=== PATIENT | female | born 1990 | race Two or more races ===

== ENCOUNTER 2024-06-17 01:25 | Inpatient (IN) | payer MEDICAID ==
[~2024-06-17] VITALS: Ht 165.1 cm; Wt 115.7 kg
[2024-06-17] VITALS (10 sets, daily range): BP systolic 98–127; BP diastolic 39–68; TEMP 98–101.5; O2SAT 96–98
[2024-06-17] MEDS ORDERED: NO REPORTED MEDS (02:21)
[2024-06-17] MEDS ORDERED: ONDANSETRON 4 MG/2 ML VIAL IV PRN (03:45)
[2024-06-17] MEDS ORDERED: MORPHINE SULFATE 2 MG/1 ML DISP.SYRIN IVP PRN (03:45)
[2024-06-17 04:04] LABS: LYMPHOCYTES # (AUTO) 0.9 K/uL (0.8-4.8); MONOCYTES # (AUTO) 0.8 K/uL (0.1-1.30); NEUTROPHILS # (AUTO) 3.8 K/uL (1.8-8.9); WHITE BLOOD COUNT (AUTO) 5.5 K/uL (3.8-11.8)
[2024-06-17 04:05] LABS: BASOPHILS % (AUTO) 0.4 % (0.0-2.0); EOSINOPHILS % (AUTO) 0.1 % (0.0-7.0); HEMATOCRIT 21.9 % (31.2-41.9); MEAN CORPUSCULAR HEMOGLOBIN 17.2 uug (24.7-32.8); MEAN CORPUSCULAR HGB CONC 30 g/dL (32.3-35.6); MEAN CORPUSCULAR VOLUME 56.6 fL (75.5-95.3); MONOCYTES % (AUTO) 14.6 % (0.0-11.0); NEUTROPHILS % (AUTO) 67.9 % (38.5-71.5); PLATELET COUNT (AUTO) 188 K/uL (179-408); RED BLOOD CELL COUNT(AUTO) 3.86 MIL/uL (3.63-4.92)
[2024-06-17 04:12] LABS: DIFFERENTIAL COMMENT 1
[2024-06-17 04:14] LABS: HEMOGLOBIN 6.6 g/dL (10.9-14.3)
[2024-06-17 04:24] LABS: ALBUMIN 2.9 g/dL (3.4-5.0); BILIRUBIN,TOTAL 0.4 mg/dL (0.2-1.0); CALCIUM 8.5 mg/dL (8.5-10.1); CREATININE 0.6 mg/dL (0.6-1.3); POTASSIUM 3.6 mmol/L (3.5-5.1); TOTAL PROTEIN, SERUM 6.7 g/dL (6.4-8.2)
[2024-06-17 04:28] LABS: BAND % (MANUAL) 3 % (0-10); BASOPHILS % (MANUAL) 0 % (0-2); EOSINOPHILS % (MANUAL) 0 % (0-8); LYMPHOCYTES % (MANUAL) 14 % (20-40); MONOCYTES % (MANUAL) 12 % (2-10); NEUTROPHILS % (MANUAL) 71 % (42-75)
[2024-06-17 04:29] LABS: ANISOCYTOSIS 1+; PLATELET ESTIMATE ADEQUATE
[2024-06-17] MEDS ORDERED: CEFEPIME HCL 1 G VIAL ONE (04:48)
[2024-06-17] MEDS: CEFEPIME HCL 1 G in IV DEXTROSE 5% 50 ML IV ONE (05:11)
[2024-06-17] MEDS: ACETAMINOPHEN 325 MG TABLET PO PRN (05:13)
[2024-06-17] MEDS ORDERED: HEPARIN SODIUM,PORCINE 5,000 UNITS/ML VIAL SQ SCH (09:00)
[2024-06-17] MEDS: ACETAMINOPHEN 500 MG TABLET PO PRN (11:18)
[2024-06-17] MEDS: CEFEPIME HCL 1 G in IV DEXTROSE 5% 50 ML IV SCH (14:34)
[2024-06-17 18:06] LABS: IRON, SERUM 7 ug/dL (50-175)
[2024-06-17 18:10] LABS: *BILIRUBIN,URIN NEGATIVE (NEGATIVE); *BLOOD, URINE 1+ (NEGATIVE); *CLARITY,URINE CLEAR (CLEAR); *COLOR,URINE DARK YELLOW (YELLOW); *KETONES,URINE 2+ (NEGATIVE); *PROTEIN,URINE 1+ (NEGATIVE); LEUKOCYTE ESTERASE ,URINE NEGATIVE (NEGATIVE); NITRITE, URINE NEGATIVE (NEGATIVE); UGLUCOSE NEGATIVE (NEGATIVE)
[2024-06-17 18:17] LABS: BACTERIA,URINE FEW /HPF (NONE SEEN); SQUAMOUS EPITHELIAL CELL,UR FEW /HPF (NONE SEEN)
[2024-06-17 18:35] LABS: HEMATOCRIT 25.1 % (31.2-41.9); HEMOGLOBIN 7.8 g/dL (10.9-14.3)
[2024-06-18 05:34] VITALS: BP 107/53; TEMP 98.5; O2SAT 97
[2024-06-18 06:48] LABS: BASOPHILS % (AUTO) 0.6 % (0.0-2.0); EOSINOPHILS # (AUTO) 0.1 K/uL (0.0-0.7); HEMATOCRIT 22.8 % (31.2-41.9); LYMPHOCYTES # (AUTO) 1.3 K/uL (0.8-4.8); LYMPHOCYTES % (AUTO) 24.4 % (20.5-51.5); MEAN CORPUSCULAR HEMOGLOBIN 18.5 uug (24.7-32.8); MEAN CORPUSCULAR HGB CONC 31 g/dL (32.3-35.6); MEAN CORPUSCULAR VOLUME 59.1 fL (75.5-95.3); MONOCYTES # (AUTO) 0.9 K/uL (0.1-1.30); MONOCYTES % (AUTO) 16.9 % (0.0-11.0); NEUTROPHILS % (AUTO) 57.1 % (38.5-71.5); PLATELET COUNT (AUTO) 183 K/uL (179-408); RED BLOOD CELL COUNT(AUTO) 3.87 MIL/uL (3.63-4.92); RED CELL DISTRIBUTION WIDTH 20.5 % (12.3-17.7); WHITE BLOOD COUNT (AUTO) 5.3 K/uL (3.8-11.8)
[2024-06-18 07:05] LABS: DIFFERENTIAL COMMENT 1; HEMOGLOBIN 7.2 g/dL (10.9-14.3)
[2024-06-18 07:11] LABS: ALBUMIN 2.8 g/dL (3.4-5.0); BILIRUBIN,TOTAL 0.4 mg/dL (0.2-1.0); CALCIUM 8.5 mg/dL (8.5-10.1); CREATININE 0.6 mg/dL (0.6-1.3); PHOSPHOROUS 3.1 mg/dL (2.5-4.9); POTASSIUM 3.9 mmol/L (3.5-5.1); TOTAL PROTEIN, SERUM 6.9 g/dL (6.4-8.2)
[2024-06-18 07:50] LABS: NEUTROPHILS % (MANUAL) 0 % (42-75)
[2024-06-18 07:51] LABS: LYMPHOCYTES % (MANUAL) 0 % (20-40)
[2024-06-18 07:52] VITALS: BP 104/46; TEMP 97.6; O2SAT 98
[2024-06-18] MEDS: HYDROCODONE/APAP 5-325MG TABLET PO PRN (08:25)
[2024-06-18] MEDS ORDERED: IOHEXOL 300MG/ML 100 ML INFUS..BTL ONE (09:38)
[2024-06-18] MEDS ORDERED: SWABABLE VALVE TRANSFER SET EA MC ONE (09:38)
[2024-06-18] MEDS ORDERED: IV NORMAL SALINE 250 ML IV ONE (09:38)
[2024-06-18 11:41] VITALS: BP 104/57; TEMP 97.9; O2SAT 98
[2024-06-18 16:08] VITALS: BP 101/53; TEMP 97.9; O2SAT 99
[2024-06-18 19:00] VITALS: BP 103/53; TEMP 97.7; O2SAT 96
[2024-06-19] VITALS: BP 98/47; TEMP 97.7; O2SAT 99
[2024-06-19 04:00] VITALS: BP 103/56; TEMP 98; O2SAT 95
[2024-06-19 07:31] VITALS: BP 87/46; TEMP 97.9; O2SAT 98
[2024-06-19 07:34] LABS: BASOPHILS % (AUTO) 0.9 % (0.0-2.0); DIFFERENTIAL COMMENT 0; EOSINOPHILS # (AUTO) 0.1 K/uL (0.0-0.7); EOSINOPHILS % (AUTO) 3.1 % (0.0-7.0); LYMPHOCYTES # (AUTO) 1.6 K/uL (0.8-4.8); LYMPHOCYTES % (AUTO) 37.3 % (20.5-51.5); MEAN CORPUSCULAR HEMOGLOBIN 18.4 uug (24.7-32.8); MEAN CORPUSCULAR HGB CONC 31 g/dL (32.3-35.6); MONOCYTES # (AUTO) 0.6 K/uL (0.1-1.30); MONOCYTES % (AUTO) 14.7 % (0.0-11.0); NEUTROPHILS # (AUTO) 1.9 K/uL (1.8-8.9); PLATELET COUNT (AUTO) 184 K/uL (179-408); RED BLOOD CELL COUNT(AUTO) 3.89 MIL/uL (3.63-4.92); RED CELL DISTRIBUTION WIDTH 20.3 % (12.3-17.7); WHITE BLOOD COUNT (AUTO) 4.2 K/uL (3.8-11.8)
[2024-06-19 07:37] LABS: CALCIUM 8.5 mg/dL (8.5-10.1); CARBON DIOXIDE 28 mmol/L (21-32); CHLORIDE 103 mmol/L (98-107); CREATININE 0.5 mg/dL (0.6-1.3); GLUCOSE 114 mg/dL (74-106); HEMOGLOBIN 7.2 g/dL (10.9-14.3); MAGNESIUM 2.2 mg/dL (1.8-2.4); POTASSIUM 3.6 mmol/L (3.5-5.1); SODIUM SERUM 138 mmol/L (136-145); UREA NITROGEN, BLOOD 8 mg/dL (7-18)
[2024-06-19 08:59] LABS: ANISOCYTOSIS 2+; EOSINOPHILS % (MANUAL) 4 % (0-8); HYPOCHROMASIA 3+; LYMPHOCYTES % (MANUAL) 37 % (20-40); MONOCYTES % (MANUAL) 15 % (2-10); NEUTROPHILS % (MANUAL) 44 % (42-75); PLATELET ESTIMATE DECREASED
[2024-06-19 09:19] VITALS: BP 102/37; TEMP 97.9; O2SAT 98
[2024-06-19 10:52] VITALS: BP 110/45; TEMP 97.5; O2SAT 98
[2024-06-19] MEDS: SOD FERRIC GLUC COMPLX/SUCROSE 125 MG in IV NORMAL SALINE 100 ML IV ONE (11:44)
[2024-06-19] MEDS ORDERED: FERR-56 PO (14:02)
[2024-06-19] MEDS ORDERED: FAMO10TA41 PO (14:02)
[2024-06-19] MEDS ORDERED: CIPR-262 PO (14:02)
[2024-06-19 15:21] VITALS: BP 111/53; TEMP 98.2; O2SAT 98
== END 2024-06-19 17:35 | disposition home or self-care (01) | DRG 720 ==
LOC: TELE3 01:25
PROVIDERS: ADMIT Internal Medicine; ATTEND Internal Medicine
PROC: 30233N1 Transfusion of Nonautologous Red Blood Cells into Peripheral Vein, Percutaneous Approach (ICD-10-PCS; principal; 2024-06-17)
PROC: 05HD33Z Insertion of Infusion Device into Right Cephalic Vein, Percutaneous Approach (ICD-10-PCS; principal; 2024-06-17)
DX: A41.9 Sepsis, unspecified organism (principal); G92.8 Other toxic encephalopathy; E87.1 Hypo-osmolality and hyponatremia; R16.2 Hepatomegaly with splenomegaly, not elsewhere classified; N39.0 Urinary tract infection, site not specified; E66.01 Morbid (severe) obesity due to excess calories; N12 Tubulo-interstitial nephritis, not specified as acute or chronic; J45.909 Unspecified asthma, uncomplicated; D50.9 Iron deficiency anemia, unspecified; R65.20 Severe sepsis without septic shock; Z68.41 Body mass index [BMI] 40.0-44.9, adult; Z98.84 Bariatric surgery status; Z88.0 Allergy status to penicillin; Z87.440 Personal history of urinary (tract) infections; Z88.1 Allergy status to other antibiotic agents; R19.7 Diarrhea, unspecified
CPT/HCPCS: 36415; 83550; 83735; 84100; 85018; 85025; 86850; 86900; 86901; 86920; 87040; 87086; A9150; G0378; J0692; J2916; P9016; Q9967